=== PATIENT | male | born 1945 | race Caucasian/White ===

== ENCOUNTER 2016-12-07 08:34 | Outpatient (CLI) | payer MEDICARE ==
[~2016-12-07 08:34] MED LIST: AMLODIPINE BESY10 MG PO; ASPIRIN EC81 MG PO; BEE POLLEN PO; BYSTOLIC20 MG PO; CRESTOR40 MG PO; CYMBALTA60 MG PO; FISH OIL PO; FOLIC ACID1 MG PO; HUMALOG KWI100 MG/ML IJ; HYCET1 ML PO; HYDROCHLOROTHIA25 MG PO; LANTUS SOL100 UNITS/ INJ; LASIX20 MG PO; LOSARTAN POTASS50 MG PO; MATURE MULTIVITAMIN PO; METAN1 PO; METFORMIN HCL1000 MG PO; PRILOSEC20 MG PO; TESTOSTERONE TOP; VICTOZA18 MG/3 ML IJ
--- NOTE | 2016-12-07 14:13 | DIAGNOSTIC IMAGING REPORT ---
PROCEDURE: XR FOOT 3 VIEWS - LEFT INDICATION: Left foot pain, initial encounter TECHNIQUE: Three views. COMPARISON: Bone scan 12/07/2016 FINDINGS: Bony erosion of the first and second tarsometatarsal joints. There is also minor erosion the base of the third metatarsal. These correspond to areas of marked increased uptake on today's bone scan consistent with osteomyelitis. There is also radiolucency of the cuboid medially, talus and calcaneus suspicious for additional areas of osteomyelitis. There is a K-wire through the third metatarsal. [place] infraction. Degenerative changes of the second PIP and first PIP joint. Extensive vascular calcifications. IMPRESSION: 1. Lytic changes of the first and second tarsometatarsal joints and base of the third metatarsal suggestive of osteomyelitis 2. Additional areas of radiolucency involving the cuboid, talus and calcaneus suspicious for additional areas of osteomyelitis 3. Results discussed with Dr. Phelan
--- NOTE | 2016-12-07 14:29 | DIAGNOSTIC IMAGING REPORT ---
PROCEDURE: NM BONE/JOINT THREE PHASE INDICATION: PAIN SWELLING LEFT FOOT, initial encounter TECHNIQUE: 27 mCi of technetium-99m MDP. Blood flow, blood pool, and delayed static images. COMPARISON: Left foot x-ray 12/07/2016 FINDINGS: Flow and blood pool images demonstrate increased activity in the left mid foot which persists on the for delayed views. This corresponds to several areas of a radiolucency on today's left foot x-ray, most consistent with osteomyelitis. Mildly increased uptake of the right first MTP joint consistent with mild degenerative changes pill IMPRESSION: 1. Marked uptake of the left midfoot most consistent with osteomyelitis 2. Results discussed with Dr. Phelan
== END 2016-12-07 23:00 ==
LOC: NM SRH 08:34
DX: M19.072 Primary osteoarthritis, left ankle and foot (principal); E11.9 Type 2 diabetes mellitus without complications